=== PATIENT | male | born 1995 | race Caucasian/White ===

== ENCOUNTER → 2020-05-15 | Day surgery (SDC) | payer BC ==
[2020-05-14 14:43] VITALS: BP 157/105
[2020-05-15] VITALS (10 sets, daily range): BP systolic 143–162; BP diastolic 87–99
[~2020-05-15] VITALS: Ht 193 cm; Wt 133.8 kg
[~2020-05-15] MED LIST: BUPIVAcaine/PF 2.5 mg/ml (0.25%) 30ml vial ONE; HYDR-4383 PO; LIDOcaine 2% (20mg/ml) 5ml vial ONE; MIDAZolam 5mg/5ml vial ONE; ROPIVAcaine 0.5% (5mg/ml) 30ml vial ONE; ceFAZolin inj. 3,000 MG in normal saline 100ml IV soln 100 ML IV ONE; dexamethasone sod phosphate 4mg/ml inj. ONE; famotidine 20mg tablet PO ONE; fentaNYL /PF 50mcg/ml 5ml ampule ONE; fentaNYL/PF 50MCG/1 ML 2ML syringe IV PRN; hydrALAZINE 20mg/ml inj. IV ONE; hydrALAZINE 20mg/ml inj. IV PRN; labetalol 20mg/4ml (5mg/ml) syringe IV ONE; labetalol 20mg/4ml (5mg/ml) syringe IV PRN; morphine 2 MG/ML inj. syringe IV PRN; morphine 4 MG/ML inj SYRINge IV PRN; ondansetron/PF 4mg/2ml inj IV PRN; ondansetron/PF 4mg/2ml inj ONE; propofol inj 20 ML IV ONE; ringers solution, lacted 1,000 ML IV ONE; ringers solution, lacted 1,000 ML IV SCH; sevoflurane 250ml liquid IH ONE; vancomycin 1,500 MG in NS 300ml IV soln IV ONE
--- NOTE | 2020-05-15 16:45 | NUR ---
Received from OR via DA , accompanied by Anesthesiologist AARON and report given by Anesthesiolgist. PATIENT WITH LEFT KNEE IMMOBILIZER IN PLACE. + CAP REFILL AND SENSATION. NO DRAINAGE PRESENT. VSS. WILL MEDICATE FOR PAIN. 20G PIV IN RIGHT UE RUNNING LR AT 100. Addendum: 05/15/20 at 1656 by Mike Young RN, RN Amended: Links added.
[2020-05-15] MEDS: fentaNYL/PF 50MCG/1 ML 2ML syringe IV PRN ×2 (17:08→17:16)
--- NOTE | 2020-05-15 17:59 | NUR ---
Received from OR via DA , accompanied by Anesthesiologist AARON and report given by Anesthesiolgist. PATIENT WITH 10L MASK ON WITH 99% SATURATIONS. VSS. LEFT KNEE IN IMMOBILZER + DP TO LEFT FOOT. CARMEN BANDAGE IS CDI.
--- NOTE | 2020-05-15 18:25 | NUR ---
PATIENT VERBALIZED UNDERSTANDING, OPPORTUNITY TO ASK QUESTIONS GIVEN AND PATIENT COMFORTABLE WITH DC. IV TAKEN OUT WITHOUT COMPLICATION. PATIENT HAS MET ALL DC CRITERIA FOR DC HOME. I HAVE REVIEWED D/C INSTRUCTIONS WITH PATIENT. TAKEN OUT VIA WHEELCHAIR WHERE PATIENT WAS TAKEN HOME WITH ALL BELONGINGS. FAMILY GAVE PATIENT TRANSPORT HOME. PATIENT GIVEN LEG ELEVATOR AND ENCOURAGE TO ELEVATE KNEE ABOVE HIS HEART. Addendum: 05/15/20 at 1858 by Mike Young RN, RN Amended: Links added.
== END | disposition home or self-care (01) ==
LOC: PAS 14:09
PROVIDERS: ATTEND Orthopaedic Surgery
DX: S76.122A Laceration of left quadriceps muscle, fascia and tendon, initial encounter (principal); M25.562 Pain in left knee; S76.112A Strain of left quadriceps muscle, fascia and tendon, initial encounter; W00.0XXA Fall on same level due to ice and snow, initial encounter; Y93.23 Activity, snow (alpine) (downhill) skiing, snowboarding, sledding, tobogganing and snow tubing; Y92.39 Other specified sports and athletic area as the place of occurrence of the external cause; G89.18 Other acute postprocedural pain; E66.9 Obesity, unspecified; Z20.822 Contact with and (suspected) exposure to COVID-19
CPT/HCPCS: 27380; 64447; 76942; 82948; 87635; A6222; C9803; J0360; J0690; J1100; J2001; J2250; J2270; J2405; J2704; J3010; J3370; J3490; J7040; J7120; A4618; A6449; A7000; J2795

== ENCOUNTER 2020-07-02 10:23 | Day surgery (SDC) | payer BC ==
[2020-07-01 13:10] LABS: BASOPHILS # (AUTO) 0.1 X10'3 (0-0.2); BASOPHILS % (AUTO) 1.1 % (0-1); EOSINOPHILS # (AUTO) 0.3 X10'3 (0-0.9); EOSINOPHILS % (AUTO) 3.5 % (0-6); LYMPHOCYTES # (AUTO) 2.3 X10'3 (1.1-4.8); LYMPHOCYTES % (AUTO) 30.4 % (21-51); MEAN CORPUSCULAR HEMOGLOBIN 29.8 PG (27.0-31.0); MEAN CORPUSCULAR HGB CONC 33.4 g/dL (33.0-36.5); MEAN CORPUSCULAR VOLUME 89.2 FL (78-98); MONOCYTES # (AUTO) 1.1 X10'3 (0-0.9); MONOCYTES % (AUTO) 14.2 % (2-12); NEUTROPHILS # (AUTO) 3.8 X10'3 (1.8-7.7); NEUTROPHILS % (AUTO) 50.8 % (42-75); PRE OP HEMATOCRIT 52.7 % (42.0-52.0); PRE OP HEMOGLOBIN 17.6 g/dL (14.0-17.9); PRE OP PLATELET COUNT 360 X10'3 (140-440); RED CELL DISTRIBUTION WIDTH 12.9 % (11.5-14.5)
[2020-07-01 13:30] LABS: ALBUMIN 4.5 G/DL (3.4-5.0); ALBUMIN/GLOBULIN RATIO 1.1 (1.1-1.5); ALKALINE PHOSPHATASE 148 IU/L (46-116); BLOOD UREA NITROGEN 11 MG/DL (7-18); BUN/CREATININE RATIO 10.2 (5.4-32.0); CALCIUM 9.8 MG/DL (8.5-10.1); CHLORIDE 103 MMOL/L (99-107); CREATININE 1.08 MG/DL (0.60-1.10); PRE OP ANION GAP 11 (8-16); PRE OP BILIRUB, TOTAL 1.5 MG/DL (0.0-1.0); PRE OP GLUCOSE 94 MG/DL (70-104); PRE OP POTASSIUM 3.8 MMOL/L (3.4-5.1); PRE OP SODIUM 143 MMOL/L (135-145); TOTAL CARBON DIOXIDE 29.2 MMOL/L (24-32); TOTAL PROTEIN 8.6 G/DL (6.4-8.2); eGFR 84 ML/MIN
[2020-07-01 13:33] LABS: PRE OP ALT 1853 U/L (30-65)
[2020-07-01 13:34] LABS: PRE OP AST 726 U/L (10-37)
[2020-07-02] VITALS (13 sets, daily range): BP systolic 126–151; BP diastolic 86–101
[~2020-07-02] VITALS: Ht 193 cm; Wt 127.2 kg
[~2020-07-02 10:23] MED LIST changes: -BUPIVAcaine/PF 2.5 mg/ml (0.25%) 30ml vial ONE; -HYDR-4383 PO; -LIDOcaine 2% (20mg/ml) 5ml vial ONE; -MIDAZolam 5mg/5ml vial ONE; +NO HOME MEDS; -ROPIVAcaine 0.5% (5mg/ml) 30ml vial ONE; -dexamethasone sod phosphate 4mg/ml inj. ONE; -fentaNYL /PF 50mcg/ml 5ml ampule ONE; -fentaNYL/PF 50MCG/1 ML 2ML syringe IV PRN; -hydrALAZINE 20mg/ml inj. IV ONE; -hydrALAZINE 20mg/ml inj. IV PRN; -labetalol 20mg/4ml (5mg/ml) syringe IV ONE; -labetalol 20mg/4ml (5mg/ml) syringe IV PRN; -morphine 2 MG/ML inj. syringe IV PRN; -morphine 4 MG/ML inj SYRINge IV PRN; -ondansetron/PF 4mg/2ml inj IV PRN; -ondansetron/PF 4mg/2ml inj ONE; -propofol inj 20 ML IV ONE; -ringers solution, lacted 1,000 ML IV ONE; -sevoflurane 250ml liquid IH ONE
[2020-07-02 11:58] LABS: ALANINE AMINOTRANSFERASE 1731 U/L (12-78); ALBUMIN 4.5 G/DL (3.4-5.0); ALBUMIN/GLOBULIN RATIO 1.1 (1.1-1.5); ALKALINE PHOSPHATASE 147 IU/L (46-116); ANION GAP 10 (8-16); ASPARTATE AMINO TRANSFERASE 653 U/L (10-37); BILIRUBIN,TOTAL 1.5 MG/DL (0.1-1.0); BLOOD UREA NITROGEN 10 MG/DL (7-18); BUN/CREATININE RATIO 9.6 (5.4-32.0); CALCIUM 9.6 MG/DL (8.5-10.1); CHLORIDE 103 MMOL/L (99-107); CREATININE 1.04 MG/DL (0.60-1.10); GLUCOSE 99 MG/DL (70-104); SODIUM 142 MMOL/L (135-145); TOTAL CARBON DIOXIDE 29.2 MMOL/L (24-32); TOTAL PROTEIN 8.5 G/DL (6.4-8.2); eGFR 88 ML/MIN
[2020-07-02] MEDS ORDERED: fentaNYL/PF 50MCG/1 ML 2ML syringe ONE (13:17)
[2020-07-02] MEDS ORDERED: midazolam 2 mg/2 ml injection ONE (13:18)
[2020-07-02] MEDS ORDERED: propofol inj 20 ML IV ONE (13:19)
--- NOTE | 2020-07-02 13:52 | NUR ---
Received from OR via DA, accompanied by Anesthesiologist DR STOVER and report given by Anesthesiologist. PT DROWSY, DENIES PAIN, LEFT KNEE W/SMALL ISLAND DRSG W/SCANT AMT OF DRAINAGE ON DRSG. Addendum: 07/02/20 at 1428 by Cecille Rosales RN Amended: Links added.
[2020-07-02] MEDS ORDERED: ringers solution, lacted 1,000 ML IV SCH (13:55)
[2020-07-02] MEDS ORDERED: ondansetron/PF 4mg/2ml inj IV PRN (13:55)
[2020-07-02] MEDS ORDERED: morphine 4 MG/ML inj SYRINge IV PRN (13:55)
[2020-07-02] MEDS ORDERED: ketorolac trometh. 30mg/ml inj. IV ONE ×2 (13:55→14:05)
[2020-07-02] MEDS ORDERED: proCHLORperazine 10 MG/2 ml inj IV PRN (13:55)
[2020-07-02] MEDS ORDERED: meperidine/PF 25mg/ml syringe IV PRN ×3 (13:55)
[2020-07-02] MEDS ORDERED: morphine 2 MG/ML inj. syringe IV PRN (13:55)
--- NOTE | 2020-07-02 16:02 | NUR ---
PT UP AND ABLE TO AMBULATE W/KNEE IMMOBILIZER AND CRUTCH, D/C INSTRUCTIONS GIVEN AND GONE OVER W/PT WHO VERBALIZED UNDERSTANDING. PT D/CD TO HOME VIA W/C TO PRIVATE PRIVATE VEHICLE W/O INCIDENT. Addendum: 07/02/20 at 1630 by Cecille Rosales RN Amended: Links added.
== END 2020-07-02 16:02 | disposition home or self-care (01) ==
LOC: PAS 10:23
PROVIDERS: ATTEND Orthopaedic Surgery
DX: T84.89XA Other specified complication of internal orthopedic prosthetic devices, implants and grafts, initial encounter (principal); Z20.822 Contact with and (suspected) exposure to COVID-19; Z98.890 Other specified postprocedural states; Z96.652 Presence of left artificial knee joint; Z79.899 Other long term (current) drug therapy; Z72.89 Other problems related to lifestyle; Y92.89 Other specified places as the place of occurrence of the external cause; Y82.8 Other medical devices associated with adverse incidents
CPT/HCPCS: 20680; 36415; 80053; 85025; 86885; 86900; 86901; 87426; J0690; J1885; J2250; J2704; J3010; J3370; J7040; A4618; A6449; A7000; J7120